=== PATIENT | male | born 1935 | race Caucasian/White ===

== ENCOUNTER → 2016-12-12 | Outpatient (CLI) | payer OTHER, BC | LOC: FIMAGING 09:01 | DX: Z09 Encounter for follow-up examination after completed treatment for conditions other than malignant neoplasm (principal); N43.3 Hydrocele, unspecified ==

== ENCOUNTER → 2017-08-26 | Outpatient (CLI) | payer OTHER, BC | LOC: BMCIMAGING 08:42 | PROVIDERS: ATTEND Specialist | DX: N45.1 Epididymitis (principal); N43.3 Hydrocele, unspecified ==

== ENCOUNTER 2017-10-07 15:02 | Emergency (ER) | payer OTHER, BC ==
--- NOTE | 2017-10-07 15:15 | CPEKG ---
Heart Rate: 96 RR Interval: 625 P-R Interval: 196 QRSD Interval: 94 QT Interval: 384 QTC Interval: 486 P [place]: 42 QRS [place]: -52 T Wave [place]: 44 EKG Severity - ABNORMAL ECG - EKG Impression: SINUS RHYTHM EKG Impression: PROBABLE LEFT ATRIAL ABNORMALITY EKG Impression: LEFT ANTERIOR FASCICULAR BLOCK EKG Impression: BORDERLINE PROLONGED QT INTERVAL Electronically Signed By: Radha Roberts 07-Oct-2017 22:50:05
--- NOTE | 2017-10-07 15:34 | EDPHY ---
H & P Time Seen by Provider: 10/07/17 15:17 HPI/ROS: CHIEF COMPLAINT: Chest pain, right ear pain HISTORY OF PRESENT ILLNESS: The patient is an 82-year-old male with a history of coronary artery disease who presents emergency department with chest pain and right ear pain. Patient states he woke this morning with right ear pain. He removed his hearing aid. This did not improve his symptoms. 3 hr ago he developed substernal chest pressure. He describes it as a "ache." Is not stabbing. It does not radiate. It is worse when he bends over. He has had no shortness of breath. No nausea or vomiting. No fevers or chills. No cough. No leg pain or swelling. REVIEW OF SYSTEMS: My complete review of systems is negative except as mentioned in the HPI. Past Medical/Surgical History: Includes coronary artery disease, prostate cancer, TIA, hematuria, hypertension , high cholesterol hepatitis Past surgical history: Includes hip replacement, hernia repair, prostate surgery Social history: Patient does not smoke Smoking Status: Never smoked Physical Exam: Vitals noted. 175/97, 96, 18, 95% on room air, 36.7 GENERAL: Well-appearing, in no acute distress, alert. HEENT: Eyes normal to inspection, normal pharynx, no signs of dehydration. Patient's right TM is obstructed by a plastic con piece from his hearing aid. I discussed this with the patient. He thinks it may be a dome from his hearing aid. NECK: No thyromegaly, no lymphadenopathy, supple. RESPIRATORY: Clear to auscultation bilaterally, no rales, rhonchi or wheezing. No chest wall tenderness. CVS: Regular rate and rhythm, no rubs, murmurs, or gallops. ABDOMEN: Soft, nontender, nondistended, no organomegaly. BACK: Normal to inspection, no CVA tenderness. SKIN: Normal color, no rash, warm, dry. No pallor. EXTREMITIES: No pedal edema, no calf tenderness, no Homans sign or cords, no joint swelling. NEURO/PSYCH: Alert and oriented x3, normal mood and affect, normal motor sensory exam. No obvious cranial nerve deficit. Constitutional: Initial Vital Signs Temperature (C) 36.7 C 10/07/17 15:17 Heart Rate 96 10/07/17 15:17 Respiratory Rate 18 10/07/17 15:17 Blood Pressure 175/97 H 10/07/17 15:17 O2 Sat (%) 95 10/07/17 15:17 O2 Delivery Mode Room Air Allergies/Adverse Reactions: acetaminophen [From Tylenol] Allergy (Mild, Verified 07/12/16 00:47) Other-Enter Comments Antihistamines - Alkylamine Allergy (Unknown, Verified 07/12/16 00:47) metoprolol Allergy (Verified 07/12/16 00:47) montelukast sodium [From Singulair] Allergy (Verified 07/12/16 00:47) pantoprazole sodium [From Protonix] Allergy (Verified 07/12/16 00:47) Home Medications: Medication Instructions Recorded Atorvastatin Calcium [Lipitor 40 40 mg PO DAILY 05/20/14 mg (*)] Cholecalciferol Vit D3 [Vitamin D3 5,000 units PO DAILY 08/30/15 (*)] Clopidogrel Bisulfate [Plavix (*)] 75 mg PO DAILY #60 tab 08/31/15 Lisinopril/Hctz 10/12.5 mg 1 ea PO DAILY 05/08/16 [Zestoretic/Prinzide 10/12.5MG (*)] Aspirin EC [Aspirin EC 325 mg (*)] 325 mg PO DAILY #21 tab 05/23/16 Ciprofloxacin [Cipro] 500 mg PO BID #14 tab 07/11/16 Medical Decision Making - Diagnostics Imaging Results: Imaging Impressions Chest X-Ray 10/07/17 15:38 Impression: 1. No active cardiopulmonary disease seen. 2. Hyperexpanded lungs. This is nonspecific but can be seen with underlying COPD or emphysema. Chest/Thorax CTA 10/07/17 15:59 Impression: 1. No evidence of pulmonary embolus using CT protocol. 2. Atherosclerotic calcifications associated with the thoracic aorta and coronary arteries. Findings discussed with Radha Roberts M.D. at 16:59 hour, 10/07/2017. ED Course/Re-evaluation: In the emergency department I discussed possible etiologies with the patient. I answered all his questions. Laboratory studies, EKG, chest x-ray and aspirin were ordered. EKG shows normal sinus rhythm, normal rate at 96. Left anterior fascicular block. Borderline prolonged QT interval. There are no ST or T-wave abnormalities. I compared this with previous EKG from 11/06/2015 and is unchanged. Procedure: Right ear foreign body removal Indication: Right ear foreign body The patient consented to having the piece of plastic removed. He states he has no surgery on his right ear or foreign body at baseline. The plastic piece was removed using alligator forceps. No significant bleeding after removal. Patient's CBC was unremarkable. Chemistry panel normal. The patient had an elevated D-dimer 0.51. Troponin is pending. I rechecked the patient. He stated after the removal from his ear his chest pain resolved. Due the patient's elevated D-dimer the patient will undergo CT angio imaging of his chest to rule out pulmonary embolus. I discussed this with the patient answered all his questions. I rechecked the patient. Chest pain resolved. He has no shortness of breath. Breath sounds are clear bilaterally. Regular rate rhythm with no rubs murmurs or gallops. CT angio chest: No acute disease noted. No pulmonary embolus. Patient does have coronary calcification. I discussed the result with the patient. He is feeling well. He has no new complaints. I recommended a 3 hr troponin. Repeat troponin is negative. Repeat EKG. Sinus rhythm at 97. Left anterior fascicular block. Unchanged. No signs of ischemia. I discussed the results with the patient. He is given warnings prior to leaving. He will return in symptoms. Differential Diagnosis: My differential includes but is not limited to ACS, acute MD, dissection, aneurysm, pulmonary embolus, pneumothorax, bronchitis, pneumonia, GERD, peptic ulcer disease, pancreatitis, tympanic membrane rupture, ear foreign body Patient's symptoms resolve when the foreign body was removed from his ear. This could be secondary to vagus nerve stimulation. He had serial negative troponin and EKG. I think this is less likely cardiac disease. CT angio did not show any pulmonary embolus or other acute disease. - Data Points Laboratory Results: Laboratory Results 10/07/17 15:10 10/07/17 15:10 10/07/17 10/07/17 10/07/17 18:08 15:10 15:10 WBC RBC Hgb Hct MCV MCH MCHC RDW Plt Count MPV Neut % (Auto) Lymph % (Auto) [place] % (Auto) Eos % (Auto) Baso % (Auto) Nucleat RBC Rel Count Absolute Neuts (auto) Absolute Lymphs (auto) Absolute Monos (auto) Absolute Eos (auto) Absolute Basos (auto) Absolute Nucleated RBC Immature Gran % Immature Gran # PT 12.9 SEC SEC (12.0-15.0) INR 0.95 (0.83-1.16) APTT 32.8 SEC SEC (23.0-38.0) D-Dimer 0.51 ug/mLFEU H ug/mLFEU (0.00-0.50) Sodium 139 mEq/L mEq/L (134-144) Potassium 3.6 mEq/L mEq/L (3.5-5.2) Chloride 93 mEq/L L mEq/L (97-110) Carbon Dioxide 31 mEq/l mEq/l (22-31) Anion Gap 15 mEq/L mEq/L (8-16) BUN 22 mg/dL mg/dL (7-23) Creatinine 0.8 mg/dL mg/dL (0.7-1.3) Estimated GFR > 60 Glucose 111 mg/dL H mg/dL (70-100) Calcium 10.1 mg/dL mg/dL (8.5-10.4) Total Bilirubin 0.6 mg/dL mg/dL (0.1-1.4) Conjugated Bilirubin 0.2 mg/dL mg/dL (0.0-0.5) Unconjugated Bilirubin 0.4 mg/dL mg/dL (0.0-1.1) AST 28 IU/L IU/L (17-59) ALT 44 IU/L IU/L (21-72) Alkaline Phosphatase 104 IU/L IU/L (38-126) Troponin I < 0.012 ng/mL ng/mL < 0.012 ng/mL ng/mL (0.000-0.034) (0.000-0.034) Total Protein 8.0 g/dL g/dL (6.3-8.2) Albumin 4.4 g/dL g/dL (3.5-5.0) Lipase 94 IU/L IU/L (23-300) 10/07/17 15:10 WBC 5.62 10^3/uL 10^3/uL (3.80-9.50) RBC 5.84 10^6/uL 10^6/uL (4.40-6.38) Hgb 17.4 g/dL g/dL (13.7-17.5) Hct 50.9 % % (40.0-51.0) MCV 87.2 fL fL (81.5-99.8) MCH 29.8 pg pg (27.9-34.1) MCHC 34.2 g/dL g/dL (32.4-36.7) RDW 13.1 % % (11.5-15.2) Plt Count 226 10^3/uL 10^3/uL (150-400) MPV 9.3 fL fL (8.7-11.7) Neut % (Auto) 62.5 % % (39.3-74.2) Lymph % (Auto) 21.9 % % (15.0-45.0) [place] % (Auto) 10.3 % % (4.5-13.0) Eos % (Auto) 4.1 % % (0.6-7.6) Baso % (Auto) 0.5 % % (0.3-1.7) Nucleat RBC Rel Count 0.0 % % (0.0-0.2) Absolute Neuts (auto) 3.51 10^3/uL 10^3/uL (1.70-6.50) Absolute Lymphs (auto) 1.23 10^3/uL 10^3/uL (1.00-3.00) Absolute Monos (auto) 0.58 10^3/uL 10^3/uL (0.30-0.80) Absolute Eos (auto) 0.23 10^3/uL 10^3/uL (0.03-0.40) Absolute Basos (auto) 0.03 10^3/uL 10^3/uL (0.02-0.10) Absolute Nucleated RBC 0.00 10^3/uL 10^3/uL (0-0.01) Immature Gran % 0.7 % % (0.0-1.1) Immature Gran # 0.04 10^3/uL 10^3/uL (0.00-0.10) PT INR APTT D-Dimer Sodium Potassium Chloride Carbon Dioxide Anion Gap BUN Creatinine Estimated GFR Glucose Calcium Total Bilirubin Conjugated Bilirubin Unconjugated Bilirubin AST ALT Alkaline Phosphatase Troponin I Total Protein Albumin Lipase Medications Given: Discontinued Medications Aspirin (Aspirin) 324 mg PO EDNOW ONE Stop: 10/07/17 15:39 Last Admin: 10/07/17 15:56 Dose: 324 mg Departure - Departure Disposition: Home, Routine, Self-Care Clinical Impression: Chest pain Qualifiers: Chest pain type: unspecified Qualified Code(s): R07.9 - Chest pain, unspecified Foreign body in ear Qualifiers: Encounter type: initial encounter Laterality: right Qualified Code(s): T16.1XXA - Foreign body in right ear, initial encounter Condition: Good Instructions: Ear Foreign Body (ED), Chest Pain (ED) Additional Instructions: Return with increasing chest pain, shortness of breath, fever, hearing loss, worsening ear pain or any other concerns. Referrals: CATHRYN VYAS [Primary Care Provider] - 1-2 days without fail
[2017-10-07] MEDS ORDERED: ASPIRIN 81 MG CHEWABLE TAB PO ONE (15:38)
[2017-10-07 15:42] LABS: PLATELET COUNT 226 10^3/uL (150-400)
[2017-10-07 15:51] LABS: INR 0.95 (0.83-1.16); PROTIME(PATIENT) 12.9 SEC (12.0-15.0)
[2017-10-07] MEDS ORDERED: IOPAMIDOL (ISOVUE 370) 100 ML BTL IV ONE (16:04)
[2017-10-07 16:50] VITALS: TEMP 98.6
--- NOTE | 2017-10-07 18:51 | CPEKG ---
Heart Rate: 97 RR Interval: 619 P-R Interval: 192 QRSD Interval: 90 QT Interval: 372 QTC Interval: 473 P [place]: 56 QRS [place]: -59 T Wave [place]: 25 EKG Severity - ABNORMAL ECG - EKG Impression: SINUS RHYTHM EKG Impression: LEFT ANTERIOR FASCICULAR BLOCK Electronically Signed By: Radha Roberts 07-Oct-2017 22:50:05
[2017-10-07 19:10] VITALS: BP 153/92; PULSE 96; RESP 16; O2SAT 93
== END 2017-10-07 19:09 | disposition home or self-care (01) ==
PROC: 09C37ZZ Extirpation of Matter from Right External Auditory Canal, Via Natural or Artificial Opening (ICD-10-PCS; principal; 2017-10-07)
DX: R07.9 Chest pain, unspecified (principal); T16.1XXA Foreign body in right ear, initial encounter; I25.10 Atherosclerotic heart disease of native coronary artery without angina pectoris; I10 Essential (primary) hypertension; Z85.46 Personal history of malignant neoplasm of prostate; Z79.82 Long term (current) use of aspirin; X58.XXXA Exposure to other specified factors, initial encounter
CPT/HCPCS: 69200; 71020; 71275; 93005; 99285; Q9967

== ENCOUNTER → 2017-10-25 | Outpatient (CLI) | payer OTHER, BC | LOC: BMCIMAGING 11:05 | PROVIDERS: ATTEND Emergency Medicine | DX: S22.32XA Fracture of one rib, left side, initial encounter for closed fracture (principal); M19.012 Primary osteoarthritis, left shoulder; M51.34 Other intervertebral disc degeneration, thoracic region ==

== ENCOUNTER → 2017-12-23 | Outpatient (CLI) | payer OTHER, BC | LOC: BMCIMAGING 08:00 | PROVIDERS: ATTEND Internal Medicine Cardiovascular Disease | DX: I72.3 Aneurysm of iliac artery (principal) ==

== ENCOUNTER → 2018-08-15 | Outpatient (CLI) | payer OTHER, BC ==
[~2018-08-15] MED LIST: IOPAMIDOL (ISOVUE-300) 100 ML BTL ONE
== END ==
LOC: FIMAGING 14:52
PROVIDERS: ATTEND Urology
DX: N40.0 Benign prostatic hyperplasia without lower urinary tract symptoms (principal); I72.3 Aneurysm of iliac artery; N40.2 Nodular prostate without lower urinary tract symptoms
CPT/HCPCS: 74178; Q9967; 82565-PO